=== PATIENT | female | born 1950 | race Caucasian/White ===

== ENCOUNTER 2020-09-26 05:43 | Emergency (ER) | payer BC ==
[2020-09-26] MEDS ORDERED: Acetaminophen/oxyCODONE 325-5 MG Tab PO STA ×2 (06:32→12:44)
[2020-09-26] MEDS ORDERED: Sodium Chloride 0.9% 10 ML Syringe FLUSH PRN (06:52)
[2020-09-26] MEDS ORDERED: Heparin Sodium 5,000 Units/ML Vial IVPUSH ONE (06:52)
[2020-09-26] MEDS ORDERED: Heparin Sodium/0.45% NaCl 500 ML IV SCH (07:00)
[2020-09-26] MEDS ORDERED: Heparin Sodium 5,000 Units/ML Vial IVPUSH PRN (07:12)
[2020-09-26] MEDS ORDERED: Heparin Sodium 5,000 Units/ML Vial IV ONE (07:15)
[2020-09-26] MEDS ORDERED: Morphine 2 MG/ML SYRINGE IVPUSH STA (07:15)
[2020-09-26] MEDS ORDERED: Aspirin 81 MG Tab.Chew PO ONE (07:19)
[2020-09-26] MEDS ORDERED: Iopamidol 755 Mg/ML 100 ML Bottle IV ONE (07:24)
--- NOTE | 2020-09-26 07:29 | EDM.PDOC ---
ED HPI GENERAL MEDICAL PROBLEM - General Chief Complaint: General Stated Complaint: LEFT SIDED PAIN Time Seen by Provider: 09/26/20 06:00 Source of Information: Reports: Patient History Limitations: Reports: No Limitations - History of Present Illness INITIAL COMMENTS - FREE TEXT/NARRATIVE: Patient is a 70 YO WF who presented to the ED because of left sided chest pain which woke her up this morning. The pain is sharp, 7/10, with associated dyspnea on exertion. She also has mild cough which is old and non-productive. 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 Left Lower Breast Pain Score (Numeric/FACES): 7 - Related Data Allergies Allergy/AdvReac Type Severity Reaction Status Date / Time amoxicillin Allergy Rash Verified 09/26/20 06:03 Home Meds: Home Meds Apixaban [Eliquis] 5 mg PO BID 09/26/20 [History] Ondansetron [Zofran ODT] 4 mg PO Q4H PRN 09/26/20 [History] Temazepam 7.5 mg PO BEDTIME PRN 09/26/20 [History] oxyCODONE 5 mg PO Q6H PRN 09/26/20 [History] polyethylene glycoL 3350 [MiraLAX] 17 gm PO DAILY PRN 09/26/20 [History] Past Medical History - Past Health History Medical/Surgical History: Denies Medical/Surgical History Respiratory History: Reports: PE, Other (See Below) Other Respiratory History: new lung mass 09/2020 Social & Family History - Tobacco Use Tobacco Use Status *Q: Never Tobacco User - Caffeine Use Caffeine Use: Reports: Coffee - Recreational Drug Use Recreational Drug Use: No ED ROS GENERAL - Review of Systems Review Of Systems: See Below Constitutional: Reports: No Symptoms HEENT: Reports: No Symptoms Respiratory: Reports: Cough Cardiovascular: Reports: Chest Pain Endocrine: Reports: No Symptoms GI/Abdominal: Reports: No Symptoms : Reports: No Symptoms Musculoskeletal: Reports: No Symptoms Skin: Reports: No Symptoms Neurological: Reports: No Symptoms Psychiatric: Reports: No Symptoms ED EXAM, GENERAL - Physical Exam Exam: See Below Exam Limited By: No Limitations General Appearance: Alert, No Apparent Distress Ears: Normal External Exam, Normal Canal, Hearing Grossly Normal Nose: Normal Inspection, Normal Mucosa, No Blood Throat/Mouth: Normal Inspection, Normal Lips Head: Atraumatic, Normocephalic Neck: Normal Inspection, Supple, Non-Tender, Full Range of Motion Respiratory/Chest: No Respiratory Distress, Lungs Clear, Normal Breath Sounds, No Accessory Muscle Use, Chest Non-Tender Cardiovascular: Normal Peripheral Pulses, Regular Rate, Rhythm, No Edema, No Gallop, No JVD, No Murmur, No Rub GI/Abdominal: Normal Bowel Sounds, Soft, Non-Tender, No Organomegaly, No Distention, No Abnormal Bruit, No Mass Back Exam: Normal Inspection, Full Range of Motion Extremities: Normal Inspection, Normal Range of Motion, Non-Tender, No Pedal Edema, Normal Capillary Refill Neurological: Alert, Oriented, CN II-XII Intact, Normal Cognition, Normal Gait, Normal Reflexes, No Motor/Sensory Deficits Psychiatric: Normal Affect, Normal Mood Skin Exam: Warm, Dry, Intact #1 Interpretation EKG Date: 09/26/20 Time: 06:06 Rhythm: NSR Rate (Beats/Min): 90 [place]: Normal P-Wave: Present QRS: Normal ST-T: Depressed QT: Normal Comparison: NA - No Prior EKG EKG Interpretation Comments: NSR LVH Course - Vital Signs Text/Narrative:: Lab/EKG/CT result was reviewed and discussed with patient and her son ASA 324 mg PO x1 Heparin bolus-5,000U IV Heparin drip @ 1000 U/hr Percocet 5/325, 1 po x1 Morphine 2 mg IV x1 Code Status: DNR/DNI Case discussed with Dr Anni Boswell Recorded V/S: Last Vital Signs Temp 36.7 C 09/26/20 05:53 Pulse 107 H 09/26/20 05:53 Resp 20 09/26/20 05:53 BP 146/83 H 09/26/20 05:53 Pulse Ox 96 09/26/20 07:24 - Orders/Labs/Meds Orders: Active Orders 24 hr Category Date Time Status EKG Documentation Completion [RC] ASDIRECTED Care 09/26/20 07:19 Ordered Ang Chest [CT] Stat Exams 09/26/20 07:11 Ordered Heparin 25,000 Units @ 20MLS/HR Med 09/26/20 07:00 Ordered Heparin Sodium/0.45% NaCl [Heparin 25,000 Units in 1/2 NS 500 ML] 500 ml IV ASDIRECTED Heparin Sodium Med 09/26/20 07:12 Ordered See Protocol IVPUSH .BOLUS PRN Sodium Chloride 0.9% [Saline Flush] Med 09/26/20 06:52 Ordered 10 ml FLUSH ASDIRECTED PRN Saline Lock Insert [OM.PC] Routine Oth 09/26/20 06:52 Ordered EKG 12 Lead [EK] Routine Ther 09/26/20 07:19 Ordered Medication Orders Heparin Sodium (Porcine) (Heparin Sodium 5,000 Units/Ml Vial) 0 units IVPUSH .BOLUS PRN; Protocol PRN Reason: Other Heparin Sodium/Sodium Chloride (Heparin 25,000 Units In 1/2 Ns 500 Ml) 500 mls @ 20 mls/hr IV ASDIRECTED UYEN; Protocol Last Admin: 09/26/20 07:14 Dose: 20 mls/hr Documented by: SABINA Cosigned by: KYLE Sodium Chloride (Sodium Chloride 0.9% 10 Ml Syringe) 10 ml FLUSH ASDIRECTED PRN PRN Reason: Keep Vein Open Last Admin: 09/26/20 07:22 Dose: 10 ml Documented by: Labs: Laboratory Tests 09/26/20 09/26/20 09/26/20 Range/Units 06:25 06:25 06:25 WBC 9.8 (3.0-10.3) x10-3/uL RBC 2.58 L (3.60-5.20) x10(6)uL Hgb 7.8 L (11.4-15.5) g/dL Hct 23.2 L (34.2-48.2) % MCV 89.8 (76.7-100.5) fL MCH 30.0 (23.9-33.9) pg MCHC 33.4 (31.9-34.8) g/dL RDW 16.6 H (12.3-16.5) % Plt Count 203 (151-488) x10(3)uL MPV 8.3 (7.1-12.4) fL Neut % (Auto) 83.8 H (30.8-76.2) % Lymph % (Auto) 8.0 L (18.4-52.1) % [place] % (Auto) 6.7 (4.4-15.7) % Eos % (Auto) 0.9 (0.6-8.1) % Baso % (Auto) 0.6 (0.2-1.5) % Neut # (Auto) 8.2 H (1.5-6.3) x10-3/uL Lymph # (Auto) 0.8 L (1.0-4.4) x10-3/uL [place] # (Auto) 0.7 (0.3-1.0) x10-3/uL Eos # (Auto) 0.1 (0.0-0.8) x10-3/uL Baso # (Auto) 0.1 (0.0-0.1) x10-3/uL PT (9.0-11.1) sec INR (1.00-1.24) APTT Sodium 138 (135-145) mmol/L Potassium 3.6 (3.5-5.3) mmol/L Chloride 98 L (100-110) mmol/L Carbon Dioxide 31 (21-32) mmol/L BUN 20 H (7-18) mg/dL Creatinine 0.7 (0.55-1.02) mg/dL Est Cr Clr Drug Dosing TNP Estimated GFR (MDRD) > 60 (>60) BUN/Creatinine Ratio 28.6 H (9-20) Glucose 130 H (80-116) mg/dL Calcium 8.3 L (8.6-10.2) mg/dL Total Bilirubin 1.0 (0.1-1.3) mg/dL AST 53 H (5-25) IU/L ALT 38 H (12-36) U/L Alkaline Phosphatase 203 H (56-112) IU/L Troponin I 1390.7 H* (4.0-60.3) pg/mL Total Protein 6.3 (6.0-8.0) g/dL Albumin 2.6 L (3.2-4.6) g/dL Globulin 3.7 g/dL Albumin/Globulin Ratio 0.7 09/26/20 09/26/20 Range/Units 08:00 08:00 WBC (3.0-10.3) x10-3/uL RBC (3.60-5.20) x10(6)uL Hgb (11.4-15.5) g/dL Hct (34.2-48.2) % MCV (76.7-100.5) fL MCH (23.9-33.9) pg MCHC (31.9-34.8) g/dL RDW (12.3-16.5) % Plt Count (151-488) x10(3)uL MPV (7.1-12.4) fL Neut % (Auto) (30.8-76.2) % Lymph % (Auto) (18.4-52.1) % [place] % (Auto) (4.4-15.7) % Eos % (Auto) (0.6-8.1) % Baso % (Auto) (0.2-1.5) % Neut # (Auto) (1.5-6.3) x10-3/uL Lymph # (Auto) (1.0-4.4) x10-3/uL [place] # (Auto) (0.3-1.0) x10-3/uL Eos # (Auto) (0.0-0.8) x10-3/uL Baso # (Auto) (0.0-0.1) x10-3/uL PT 14.0 H (9.0-11.1) sec INR 1.32 H (1.00-1.24) APTT TNP Sodium (135-145) mmol/L Potassium (3.5-5.3) mmol/L Chloride (100-110) mmol/L Carbon Dioxide (21-32) mmol/L BUN (7-18) mg/dL Creatinine (0.55-1.02) mg/dL Est Cr Clr Drug Dosing Estimated GFR (MDRD) (>60) BUN/Creatinine Ratio (9-20) Glucose (80-116) mg/dL Calcium (8.6-10.2) mg/dL Total Bilirubin (0.1-1.3) mg/dL AST (5-25) IU/L ALT (12-36) U/L Alkaline Phosphatase (56-112) IU/L Troponin I 1479.1 H* (4.0-60.3) pg/mL Total Protein (6.0-8.0) g/dL Albumin (3.2-4.6) g/dL Globulin g/dL Albumin/Globulin Ratio Meds: Medications Generic Name Dose Route Start Last Admin Trade Name Freq PRN Reason Stop Dose Admin Heparin Sodium (Porcine) 0 units 05/19/21 07:12 Heparin Sodium 5,000 Units/Ml Vial IVPUSH .BOLUS PRN Other Protocol Heparin Sodium/Sodium Chloride 500 mls @ 20 mls/hr 09/26/20 07:00 09/26/20 07:14 Heparin 25,000 Units In 1/2 Ns 500 Ml IV 20 mls/hr ASDIRECTED UYEN Administration Protocol Sodium Chloride 10 ml 09/26/20 06:52 09/26/20 07:22 Sodium Chloride 0.9% 10 Ml Syringe FLUSH 10 ml ASDIRECTED PRN Administration Keep Vein Open Discontinued Medications Generic Name Dose Route Start Last Admin Trade Name Freq PRN Reason Stop Dose Admin Aspirin 324 mg 09/26/20 07:19 09/26/20 07:23 Aspirin 81 Mg Tab.Chew PO 09/26/20 07:20 324 mg ONETIME ONE Administration Heparin Sodium (Porcine) 5,000 units 09/26/20 06:52 09/26/20 07:13 Heparin Sodium 5,000 Units/Ml Vial IVPUSH 09/26/20 06:53 5,000 units ONETIME ONE Administration Heparin Sodium (Porcine) 4,000 units 09/26/20 07:15 09/26/20 07:20 Heparin Sodium 5,000 Units/Ml Vial IV 09/26/20 07:16 Not Given ONETIME ONE Iopamidol 100 ml 09/26/20 07:24 09/26/20 07:56 Iopamidol 755 Mg/Ml 100 Ml Bottle IV 09/26/20 07:25 90 ml . DIRECTED ONE Administration Morphine Sulfate 2 mg 09/26/20 07:15 09/26/20 07:22 Morphine 2 Mg/Ml Syringe IVPUSH 09/26/20 07:16 2 mg NOW STA Administration Oxycodone/Acetaminophen 1 tab 09/26/20 06:32 09/26/20 06:40 Acetaminophen/Oxycodone 325-5 Mg Tab PO 09/26/20 06:33 1 tab NOW STA Administration Departure - Departure Time of Disposition: 09:20 Disposition: DC/Tfer to Acute Hospital 02 Condition: Good Clinical Impression: ACS (acute coronary syndrome), Pulmonary embolism, Lung cancer - Discharge Information Referrals: Sher Townsend MD [Primary Care Provider] - Forms: ED Department Discharge Sepsis Event Note (ED) - Evaluation Sepsis Screening Result: No Definite Risk - Focused Exam Vital Signs: Vital Signs Temp Pulse Resp BP Pulse Ox Pulse Ox 09/26/20 07:24 96 09/26/20 05:53 36.7 C 107 H 20 146/83 H 91 L - My Orders Last 24 Hours: My Active Orders 09/26/20 06:52 Sodium Chloride 0.9% [Saline Flush] 10 ml FLUSH ASDIRECTED PRN Saline Lock Insert [OM.PC] Routine 09/26/20 07:00 Heparin 25,000 Units @ 20MLS/HR Heparin Sodium/0.45% NaCl [Heparin 25,000 Units in 1/2 NS 500 ML] 500 ml IV ASDIRECTED 09/26/20 07:11 Ang Chest [CT] Stat 09/26/20 07:12 Heparin Sodium See Protocol IVPUSH .BOLUS PRN 09/26/20 07:19 EKG Documentation Completion [RC] ASDIRECTED EKG 12 Lead [EK] Routine - Assessment/Plan Last 24 Hours: My Active Orders 09/26/20 06:52 Sodium Chloride 0.9% [Saline Flush] 10 ml FLUSH ASDIRECTED PRN Saline Lock Insert [OM.PC] Routine 09/26/20 07:00 Heparin 25,000 Units @ 20MLS/HR Heparin Sodium/0.45% NaCl [Heparin 25,000 Units in 1/2 NS 500 ML] 500 ml IV ASDIRECTED 09/26/20 07:11 Ang Chest [CT] Stat 09/26/20 07:12 Heparin Sodium See Protocol IVPUSH .BOLUS PRN 09/26/20 07:19 EKG Documentation Completion [RC] ASDIRECTED EKG 12 Lead [EK] Routine
[2020-09-26] MEDS ORDERED: Morphine 2 MG/ML SYRINGE IVPUSH ONE (10:22)
--- NOTE | 2020-09-26 10:27 | CT ---
COMPUTERIZED TOMOGRAPHY ANGIOGRAPHY OF THE CHEST WITH CONTRAST 9855 INDICATION: Chest pain. History of PE left lung. Spiral 1.25 mm axial sections were obtained through the chest with axial, sagittal and coronal reconstructions utilizing 90 mL Isovue 370 at 3 cc/sec 09/26/2020 and compared with 09/13/2020. Total exam DLP was 484.56 mGy-cm. 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 There is a newly progressive finding of increased narrowing of the right mainstem bronchus apparently by this mass with impingement on pulmonary arteries in that area also noted. Significant decrease in the lumen of the right mainstem bronchus is noted compared with the previous study of just two weeks prior. The previously noted Rt upper lobe mass, mediastinal component, has increased in size significantly compared with that study in the area of the michelet and right mainstem bronchus. The mass itself also appears to have increased in bulk, in the right upper lobe. Also noted is marked increase in the amount of pleural fluid on the right with marked decrease in the amount of aerated lung and significant areas of right upper and lower lobe atelectasis. Middle lobe atelectatic change is also suggested. Pulmonary emboli are again noted on the left with a minimal change, there being increased pulmonary embolus at the left main pulmonary artery at the origin of second order pulmonary arteries extending into the left lower lobe. The pulmonary embolus has extended slightly into the main pulmonary artery on the left. No other gross interval change is identified except for some increase in interstitial change in the right lung--probable mild pulmonary vascular congestion due to the decreased aerated lung on the right. Report was called to Dr. Little at 0812 hours 09/26/2020. MILAN
[2020-09-26 14:55] VITALS: BP 137/67; PULSE 79
== END 2020-09-26 14:20 ==
LOC: FB.ED 05:43
DX: C34.90 Malignant neoplasm of unspecified part of unspecified bronchus or lung (principal); I26.99 Other pulmonary embolism without acute cor pulmonale; I24.9 Acute ischemic heart disease, unspecified; Z88.0 Allergy status to penicillin; Z79.01 Long term (current) use of anticoagulants
CPT/HCPCS: 36415; 71275; 80053; 84484; 85025; 85610; 93005; 96365; 96366; 96375; 96376; 99285-25; A9270-GY; J1644; J2270; Q9967